=== PATIENT | female | born 1970 | race Hispanic/Latino ===

== ENCOUNTER 2021-12-13 17:10 | Emergency (ER) | payer MEDICARE, OTHER ==
[~2021-12-13] VITALS: Ht 144.8 cm; Wt 61.2 kg
[~2021-12-13 17:10] MED LIST: AMOXICILLIN250 MG PO; ATENOLOL50 MG; AVAPRO150 MG; CRESTOR10 MG; CRESTOR20 MG; GLUCOTROL XL5 MG PO; LANTUS100 UNITS/ SC; LEVEMIR100 UNIT/1; LEVEMIR100 UNIT/1 SC; NITROFURANTOIN100 MG; ZOLOFT25 MG PO; ZOLOFT50 MG PO
[2021-12-13 18:11] LABS: BASOPHILS % 0.5 % (0.0-1.0); EOSINOPHILS # (AUTO) 0.2 (0.0-0.4); EOSINOPHILS % 2.5 % (0.0-6.0); HEMATOCRIT 41.1 % (34.2-44.1); HEMOGLOBIN 12.9 g/dL (12.0-16.0); LYMPHOCYTES # (AUTO) 2.6 (1.0-3.2); LYMPHOCYTES % 30.7 % (18.0-39.1); MEAN CORPUSCULAR HEMOGLOBIN 30.7 pg (28-32); MEAN CORPUSCULAR HGB CONC 31.4 g/dL (31-35); MEAN CORPUSCULAR VOLUME 97.9 fL (81-99); MONOCYTES # (AUTO) 0.5 (0.2-0.8); MONOCYTES % 6.1 % (4.4-11.3); PLATELET COUNT 181 x10e3/uL (140-360); RED CELL DISTRIBUTION WIDTH 13.4 % (11.7-14.4)
[2021-12-13 18:25] LABS: ALANINE AMINOTRANSFERASE 7 IU/L (0-55); ALBUMIN 3.6 g/dL (3.5-5.0); ALBUMIN/GLOBULIN RATIO 0.8 (0.8-2.0); ALKALINE PHOSPHATASE 81 IU/L (40-150); ANION GAP 16.2 mmol/L (8-16); BLOOD UREA NITROGEN 25 mg/dL (7-26); BUN/CREATININE RATIO 14 (6-25); CALCIUM 8.6 mg/dL (8.4-10.2); CARBON DIOXIDE 18 mmol/L (22-29); CHLORIDE 111 mmol/L (98-107); CREATINE KINASE 42 IU/L (29-168); CREATININE, SERUM 1.82 mg/dL (0.57-1.11); EST GLOMERULAR FILTRATION RATE 29 ML/MIN (60-); GLUCOSE 89 mg/dL (74-118); POTASSIUM 4.2 mmol/L (3.5-5.1); SODIUM 141 mmol/L (136-145)
== END 2021-12-13 19:54 | disposition home or self-care (01) ==
LOC: ER 19:39
DX: S42.001A Fracture of unspecified part of right clavicle, initial encounter for closed fracture (principal); R42 Dizziness and giddiness; W18.39XA Other fall on same level, initial encounter; Y93.01 Activity, walking, marching and hiking; Y92.89 Other specified places as the place of occurrence of the external cause; G40.909 Epilepsy, unspecified, not intractable, without status epilepticus
CPT/HCPCS: 36415; 70450; 71045; 80053; 82550; 82553; 84484; 85025; 99283